=== PATIENT | female | born 1955 | race Caucasian/White ===

== ENCOUNTER → 2016-06-30 | Outpatient (CLI) | payer BC ==
[~2016-06-30] MED LIST: B-COCAP2 PO; CALC600T14 PO; EFF375 PO; FRRG PO; MAGN400T5 PO; METH-307 PO; NSNN50 NAE; ZOLP5TAB PO
== END | disposition home or self-care (01) ==
LOC: C.LABSPEC 17:13
PROVIDERS: ATTEND Podiatrist Primary Podiatric Medicine
DX: B35.1 Tinea unguium (principal)

== ENCOUNTER → 2016-11-08 | Outpatient (CLI) | payer BC | END | disposition home or self-care (01) | LOC: C.LAB1850 09:00 | PROVIDERS: ATTEND Obstetrics & Gynecology | DX: N63 Unspecified lump in breast (principal) ==

== ENCOUNTER → 2016-11-12 | Outpatient (CLI) | payer BC ==
[~2016-11-12] MED LIST changes: +GADAVIST IV PRN
--- NOTE | 2016-11-15 15:12 | MAMMOGRAPHY REPORT ---
BREAST MRI OF BOTH BREASTS : 11/12/2016 CLINICAL HISTORY: Screening breast MRI. Strong family history of breast cancer. COMPARISON: Comparison is made to exams dated: 01/14/2015 breast MRI, 10/10/2015 mammogram, 08/19/2014 ultrasound, 08/19/2014 mammogram, 11/13/2013 mammogram, and 10/25/2012 mammogram - [facility]. Technique: The patient was placed prone in a dedicated breast imaging coil. Precontrast axial T1-corina ghted, axial T2-weighted fat saturation, and axial T1-weighted fat saturation images were obtained. After the administration of 7 mL of Gadavist IV contrast, sequential T1-weighted fat saturation image s were obtained. Subtraction images were obtained of the dynamic contrast enhanced sequences, and 3- D reformations were performed. The Simbionix software was used for kinetic analysis. Findings: There is mild background parenchymal enhancement involving bilateral breasts. There are multiple sma ll foci of enhancement seen scattered throughout both breasts, which are considered benign given the multiplicity and bilaterality and felt to represent normal background parenchymal enhancement. There are no suspicious masses or areas of abnormal non-mass enhancement within either breast. There has been no significant interval change compared to the prior MRI. A faint 10 mm linear area of enhancem ent in the right 12:00 breast is stable compared to the 2015 exam and demonstrates no abnormal kineti cs and is therefore considered benign (series [id number] image [id number]). There is no evidence of axillary adenopathy. The chest wall structures are negative. Extramammary s oft tissues are unremarkable. IMPRESSION: ACR BI-RADS CATEGORY 2: BENIGN No MRI evidence of malignancy in either breast. Recommend screening bilateral breast MRI in one year . Note that the patient is also due for bilateral screening mammograms at this time (were due October 01). Joslyn Quintanilla M.D. 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
== END | disposition home or self-care (01) ==
LOC: C.MRI 08:07
PROVIDERS: ATTEND Obstetrics & Gynecology
DX: N63 Unspecified lump in breast (principal)

== ENCOUNTER → 2017-02-01 | Outpatient (CLI) | payer BC ==
[~2017-02-01] MED LIST changes: -GADAVIST IV PRN
== END | disposition home or self-care (01) ==
LOC: C.LAB1850 09:12
PROVIDERS: ATTEND Obstetrics & Gynecology
DX: R61 Generalized hyperhidrosis (principal)

== ENCOUNTER → 2017-03-10 | Outpatient (CLI) | payer BC ==
--- NOTE | 2017-03-11 07:53 | MAMMOGRAPHY REPORT ---
BILATERAL DIGITAL SCREENING MAMMOGRAM TOMOSYNTHESIS WITH CAD: 03/10/2017 TECHNIQUE: Breast tomosynthesis in addition to standard 2D mammography was performed. Current study was also evaluated with a Computer Aided Detection (CAD) system. COMPARISON: Comparison is made to exams dated: 11/12/2016 breast MRI, 10/10/2015 mammogram, 01/14/2015 breast MRI, 08/19/2014 ultrasound, 08/19/2014 mammogram, and 11/13/2013 mammogram - [facility]. BREAST COMPOSITION: The tissue of both breasts is heterogeneously dense, which may obscure small mas ses. FINDINGS: No suspicious masses, calcifications, or areas of architectural distortion are noted in ei ther breast. There has been no significant interval change compared to prior exams. Scattered bilater al benign-appearing calcifications are not significantly changed. IMPRESSION: ACR BI-RADS CATEGORY 2: BENIGN There is no mammographic evidence of malignancy. A 1 year screening mammogram is recommended. The pa tient will receive written notification of the results. Approximately 10% of breast cancers are not detected with mammography. A negative mammographic report should not delay biopsy if a clinically suggestive mass is present. Joslyn Quintanilla M.D. 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
== END | disposition home or self-care (01) ==
LOC: C.MAMM 15:09
PROVIDERS: ATTEND Obstetrics & Gynecology
DX: Z12.31 Encounter for screening mammogram for malignant neoplasm of breast (principal)

== ENCOUNTER → 2017-06-10 | Outpatient (CLI) | payer OTHER ==
--- NOTE | 2017-06-10 11:30 | DIAGNOSTIC IMAGING REPORT ---
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 Mild mucosal thickening of the sphenoid sinuses noted with suggested air-fluid level of the right sphenoid sinus. The remaining paranasal sinuses appear generally clear. Mastoid air cells also appear clear. No opaque foreign body or facial bone fracture identified. IMPRESSION: 1. Mild mucosal thickening of the sphenoid sinuses with small air-fluid level of the right sphenoid sinus suggests acute sinusitis. 2. Hypoplasia of the right frontal sinus. The above report was generated using voice recognition software. It may contain grammatical, syntax or spelling errors. Electronically signed by: Niles Way M.D. 06/10/2017 11:28 AM Dictated Date/Time: 06/10/2017 11:26 AM
== END | disposition home or self-care (01) ==
LOC: C.RAD1850 10:53
PROVIDERS: ATTEND Internal Medicine
DX: R09.81 Nasal congestion (principal); J34.89 Other specified disorders of nose and nasal sinuses

== ENCOUNTER → 2017-07-01 | Outpatient (CLI) | payer OTHER ==
--- NOTE | 2017-07-01 11:10 | DIAGNOSTIC IMAGING REPORT ---
CT OF THE SINUSES WITHOUT CONTRAST FUSION PROTOCOL CLINICAL HISTORY: Allergic rhinitis. Recurrent sinusitis despite antibiotic and prednisone therapy. COMPARISON STUDY: Head CT August 31, 2013 and sinus radiographs June 10, 2017. TECHNIQUE: Axial images of the sinuses were obtained without intravenous contrast according to the Fusion protocol. Coronal reformats were viewed. FINDINGS: Visualized portions of the intracranial contents are unremarkable on this unenhanced exam. The mastoid air cells are clear. There is no fluid within the middle ears. Ossicles are intact. Orbits are unremarkable. There is no mass or bony destruction within the sinuses or the nasal cavity. The cribriform plate is intact. There is mild mucosal thickening within the bilateral inferior frontal sinuses. The bilateral frontoethmoidal recesses are occluded by mucosal thickening. A small left sphenoid sinus air-fluid level is noted. The bilateral sphenoethmoidal recesses are occluded. There is moderate mucosal thickening of the ethmoid sinuses as well as mild thickening of the bilateral maxillary sinuses without air-fluid levels. The left ostiomeatal complex is occluded. The right is patent. There is no significant nasal septal deviation. IMPRESSION: 1. Small left sphenoid sinus air-fluid level which suggests acute sinusitis. Moderate mucosal thickening of the ethmoid sinuses with mild mucosal thickening of the bilateral maxillary and frontal sinuses. 2. Multiple occluded drainage pathways, as detailed above. No bony destruction. No mass identified. Electronically signed by: Marciano Mcneil M.D. 07/01/2017 11:08 AM Dictated Date/Time: 07/01/2017 11:02 AM
== END | disposition home or self-care (01) ==
LOC: C.CTS 10:14
PROVIDERS: ATTEND Physician Assistant
DX: J01.20 Acute ethmoidal sinusitis, unspecified (principal); J30.9 Allergic rhinitis, unspecified

== ENCOUNTER → 2017-08-02 | Outpatient (CLI) | payer OTHER ==
--- NOTE | 2017-08-02 16:04 | DIAGNOSTIC IMAGING REPORT ---
CHEST 2 VIEWS ROUTINE HISTORY: Short of breath. Cough. COMPARISON: Chest 04/17/2013. FINDINGS: The lungs are clear. Cardiac silhouette is normal in size. No pleural effusions. No pneumothorax. IMPRESSION: No acute process. Electronically signed by: Randy Jimenez M.D. 08/02/2017 4:03 PM Dictated Date/Time: 08/02/2017 4:01 PM
== END | disposition home or self-care (01) ==
LOC: C.RAD1850 15:46
PROVIDERS: ATTEND Internal Medicine
DX: R06.02 Shortness of breath (principal); R05 Cough

== ENCOUNTER → 2017-11-30 | Outpatient (CLI) | payer OTHER ==
[~2017-11-30] MED LIST changes: +CETI10TA84 PO; -EFF375 PO; -METH-307 PO; +VNTHFA/IN INH; -ZOLP5TAB PO
[2017-11-30 12:21] LABS: BASO % 0.1 %; BASO ABS # 0.01 K/uL (0-0.2); EOS % 0.2 %; EOS ABS # 0.03 K/uL (0-0.5); HEMATOCRIT 41.1 % (37-47); HEMOGLOBIN 13.6 g/dL (12.0-16.0); IG# 0.07 K/uL (0.00-0.02); LYMPH % 6.4 %; LYMPH ABS # 0.92 K/uL (1.2-3.4); MEAN CELL VOLUME 91.9 fL (80-100); MEAN CORPUSCULAR HEMOGLOBIN 30.4 pg (25-34); MEAN CORPUSCULAR HGB CONC 33.1 g/dl (32-36); MEAN PLATELET VOLUME 9.8 fL (7.4-10.4); MONO % 7.6 %; MONO ABS # 1.09 K/uL (0.11-0.59); NEUT % 85.2 %; NEUT ABS # 12.16 K/uL (1.4-6.5); PLATELET COUNT 375 K/uL (130-400); RED CELL DISTRIBUTION WIDTH CV 13.5 % (11.5-14.5); RED CELL DISTRIBUTION WIDTH SD 44.7 fL (36.4-46.3); WHITE BLOOD COUNT 14.28 K/uL (4.8-10.8)
[2017-11-30 12:42] LABS: PTT PATIENT 25.1 SECONDS (21.0-31.0)
[2017-11-30 13:37] LABS: POTASSIUM 4.3 mmol/L (3.5-5.1)
== END | disposition home or self-care (01) ==
LOC: C.CPL 11:13
DX: Z01.818 Encounter for other preprocedural examination (principal)

== ENCOUNTER → 2017-12-02 | Day surgery (SDC) | payer OTHER ==
[2017-11-03 11:48] VITALS: Ht 162.6 cm; Wt 75.0 kg
[~2017-12-02] VITALS: Ht 162.6 cm; Wt 75.0 kg
[~2017-12-02] MED LIST changes: +ATROPINE SULFATE 0.1 MG/ML 5ML SYR IV PRN; +CEFAZOLIN 2000MG IV PUSH 15 ML IV SCH; +DEXAMETHASONE SOD INJ 4 MG/ML VIAL ONE; +EpHEDrine SULFATE INJ 50 MG/ML AMP IV PRN; +EpINEphrine INJ 1MG/ML AMP 1 MG/ML AMP ONE; +FENTANYL CITRATE INJ 50 MCG/1 ML 2 ML VIAL ONE; +HYDROCODONE/ACETAMIN 5/325MG TAB PO PRN; +HYDROCORTISONE SOD SUCCINATE 100 MG/2 ML VIAL ONE; +LACTATED RINGER'S 1000ML 1,000 ML IV SCH; +LIDOCAINE 4% MPF SOAK 5 ML = 1 DOSE ONE; +LIDOCAINE HCL 2% 2 ML VIAL (20MG/ML) ONE; +LIDOCAINE/EPINEPHRINE 1% 20 ML VIAL ONE; +MIDAZOLAM HCL 1 MG/ML 2ML VIAL ONE; +ONDANSETRON INJ 2 MG/ML 2 ML VIAL IV PRN; +ONDANSETRON INJ 2 MG/ML 2 ML VIAL ONE; +OXYMETAZOLINE HCL 0.05% NA SPR 15 ML BTL PRN; +OXYMETAZOLINE HCL 0.05% NA SPR 15 ML BTL SCH; +PROPOFOL IV EMULSION 10 MG/ML 20 ML VIAL ONE; +ROCURONIUM BROMIDE 10 MG/ML 5 ML VIAL ONE
--- NOTE | 2017-12-02 11:17 | History & Physical Bridge - [place] ---
H&P Re-Evaluation Bridge Note: I have examined the patient, reviewed the History & Physical and in the interval since the performance of the History & Physical I have noted the following changes of clinical significance: No changes noted
--- NOTE | 2017-12-02 13:02 | [facility] Operative Report ---
Operative Report Operative Date Dec 02, 2017. Pre-Operative Diagnosis CHRONIC SINUSITIS AND BILATERAL INFERIOR TURBINATE HYPERTROPHY Post-Operative Diagnosis SAME PREOP Procedure(s) Performed Image Guided Bilateral Endoscopic Sinus Surgery And Inferior Turbinate Reduction Surgeon DR. Malinda HADDAD Medical Administrative Technician Surgeon(s) NONE Estimated Blood Loss 25 ML Findings 1. SMALL BILATERAL SHAYNE BULLOSA 2. POLYPOID MUCOSAL THICKENING BILATERAL FRONTOETHMOIDAL RECESSES 3. MILD MUCOSAL THICKENING OF ALL OF THE PARANASAL SINUSES 4. MODERATE BILATERAL INFERIOR TURBINATE HYPERTROPHY Specimens NONE Anesthesia Type General I attest to the content of the Intraoperative Record and any orders documented therein. Any exceptions are noted below.
--- NOTE | 2017-12-02 13:04 | Discharge Instructions ---
Discharge Instructions Date of Service Dec 02, 2017. Admission Reason for Admission: Hypertrophy Both Inferior Turbinate Reduction, Rec Discharge Discharge Diagnosis / Problem: SAME Discharge Goals Goal(s): Therapeutic intervention Activity Recommendations Activity Limitations: as noted below LIGHT ACTIVITY AND NO NOSE BLOWING FOR 2 WEEKS; NO DRIVING WHILE ON NORCO . Current Hospital Diet Patient's current hospital diet: Discharge Diet Recommended Diet: Regular Diet Procedures Procedures Performed: Image Guided Bilateral Endoscopic Sinus Surgery And Inferior Turbinate Reduction Pending Studies Studies pending at discharge: no Medical Emergencies . Who to Call and When: Medical Emergencies: If at any time you feel your situation is an emergency, please call 911 immediately. . Non-Emergent Contact Non-Emergency issues call your: Surgeon . . "Provider Documentation" section prepared by Oneil Jimenez. .
[2017-12-02] MEDS: FENTANYL CITRATE INJ 50 MCG/1 ML 2 ML VIAL IV PRN ×4 (13:25→13:45)
--- NOTE | 2017-12-02 13:58 | Anesthesia Progress Nt - [facility] ---
Anesthesia Post Op Note Date & Time Dec 02, 2017 at 13:58 Vital Signs Pain Intensity: 4 Vital Signs Past 12 Hours Date Time Temp Pulse Resp B/P (MAP) Pulse Ox O2 Delivery O2 Flow Rate FiO2 12/02/17 13:53 36.7 78 16 130/85 94 Room Air 12/02/17 13:52 75 23 93 12/02/17 13:52 76 23 12/02/17 13:51 130/85 12/02/17 13:47 76 16 94 12/02/17 13:47 76 16 12/02/17 13:46 123/82 12/02/17 13:42 76 20 98 12/02/17 13:42 76 20 12/02/17 13:41 130/82 12/02/17 13:37 77 22 12/02/17 13:37 78 22 98 12/02/17 13:36 137/80 12/02/17 13:32 72 13 12/02/17 13:32 72 13 100 12/02/17 13:31 137/83 12/02/17 13:27 77 18 12/02/17 13:27 77 18 100 12/02/17 13:26 137/88 12/02/17 13:22 81 18 100 12/02/17 13:22 82 18 12/02/17 13:21 138/85 12/02/17 13:17 80 16 12/02/17 13:17 80 16 100 12/02/17 13:16 134/83 12/02/17 13:12 84 16 12/02/17 13:12 83 16 100 12/02/17 13:11 134/82 12/02/17 13:09 132/76 12/02/17 13:07 36.8 90 12 132/90 99 Humidified Oxygen 6 Mask 12/02/17 10:42 36.4 71 16 128/85 (99) 99 Room Air Notes Mental Status: alert / awake / arousable, participated in evaluation Pt Amnestic to Procedure: Yes Nausea / Vomiting: adequately controlled Pain: adequately controlled Airway Patency, RR, SpO2: stable & adequate BP & HR: stable & adequate Hydration State: stable & adequate Anesthetic Complications: no major complications apparent
[2017-12-02 14:19] VITALS: TEMP 36.7
--- NOTE | 2017-12-02 14:23 | OPERATIVE REPORT ---
DATE OF OPERATION: 12/02/2017 PREOPERATIVE DIAGNOSES: 1. Chronic rhinosinusitis. 2. Bilateral inferior turbinate hypertrophy. 3. Bilateral elfego bullosa. PREOPERATIVE DIAGNOSES: 1. Chronic rhinosinusitis. 2. Bilateral inferior turbinate hypertrophy. 3. Bilateral elfego bullosa. PROCEDURES: [employer] fusion image-guided bilateral endoscopic sinus surgery consisting of: 1. Bilateral endoscopic elfego bullosa resection. 2. Bilateral maxillary antrostomies. 3. Bilateral complete ethmoidectomies. 4. Bilateral balloon sinuplasty assisted frontal sinusotomies. 5. Bilateral sphenoidotomies. 6. Bilateral inferior turbinate outfracture and turbinoplasty. SURGEON: Oneil Jimenez MD ANESTHESIA: General endotracheal. ESTIMATED BLOOD LOSS: 25 mL. FINDINGS: 1. Severe polypoid mucosal thickening involving the bilateral frontal ethmoidal recesses. 2. Small bilateral elfego bullosa. 3. Moderate bilateral inferior turbinate hypertrophy. 4. Mild mucosal thickening involving all the other paranasal sinuses bilaterally. SPECIMENS: None. COMPLICATIONS: None. INDICATIONS FOR THE PROCEDURE: The patient is a 61-year-old female with the above-mentioned history, which has been refractory to maximum medical therapy. She presents for the above-mentioned procedures on an outpatient elective basis. DESCRIPTION OF PROCEDURE: After informed consent had been obtained from the patient, the patient was wheeled to the operating room and placed on the operating room table in the supine position. Monitors were placed and after induction of general endotracheal anesthesia, the patient prepped in the usual fashion for image-guided endoscopic sinus surgery. Lidocaine and epinephrine pledgets were placed in the bilateral nasal cavities. The [employer] fusion headset was placed on the forehead and was registered, calibrated, and verified and used throughout the case, but especially in the frontal and sphenoid sinus portions. The left-sided pledgets were removed. A freer elevator was used to medialize the left middle turbinate. The left middle turbinate and lateral nasal wall were injected with 1% lidocaine with 1:100,000 epinephrine. A lidocaine and epinephrine pledget was then placed into the left middle meatus. The right side was then addressed in a similar fashion. The left-sided pledget was removed. A sickle knife was used to incise the left middle turbinate longitudinally and the lateral half of the middle turbinate was removed using straight Gilles-Cut forceps and powered instrumentation in order to perform an endoscopic elfego bullosa resection. A freer elevator, straight Gilles-Cut forceps, and backbiting forceps along with powered instrumentation was then used to perform an uncinectomy. The natural ostia of the maxillary sinus was identified and this was enlarged anteriorly, inferiorly, and posteriorly using backbiting forceps and powered instrumentation. A complete ethmoidectomy was then performed using powered instrumentation. Using a curved frontal sinus suction, the left frontal sinus was cannulated. The suction was removed and a #6 frontal sinus balloon was inserted and inflated to 12 atmospheres of pressure in 3 different locations to dilate the left frontal recess. Polypoid tissue was removed using powered instrumentation. A transnasal approach of the sphenoid sinus was then undertaken. The natural ostia of the sphenoid sinus was identified and this was enlarged medially and inferiorly using powered instrumentation. Of note, the intraoperative findings were of severe polypoid mucosal thickening involving the agger nasi cells and polypoid mucosal thickening involving the left frontal ethmoidal recess. There was also a small elfego bullosa. There was also mild mucosal thickening involving all the paranasal sinuses on the left hand side. The right side was then addressed in a similar fashion with similar intraoperative findings. A Alva elevator was then used to infracture and subsequently outfracture the inferior turbinates bilaterally. These were injected with 1% lidocaine with 1:100,000 epinephrine. A 2.0 mm turbinate blade using powered instrumentation was then used to perform bilateral inferior turbinoplasties in a submucosal fashion. The sinonasal cavities were suctioned. Merogel was then placed into the bilateral ethmoid sinuses/middle meati. An orogastric tube was placed and the stomach was suctioned free of air and stomach contents. This marked the end of the case. The patient tolerated the procedure well and there were no apparent complications. The patient was extubated and transferred to recovery room in stable condition. I attest to the content of the Intraoperative Record and any orders documented therein. Any exception s are noted below.
[2017-12-02 14:47] VITALS: BP 127/84; PULSE 73; O2SAT 96
== END | disposition home or self-care (01) ==
LOC: X.SURG 09:19
DX: J32.9 Chronic sinusitis, unspecified (principal); J34.89 Other specified disorders of nose and nasal sinuses; J34.3 Hypertrophy of nasal turbinates; J45.909 Unspecified asthma, uncomplicated; E53.8 Deficiency of other specified B group vitamins; E55.9 Vitamin D deficiency, unspecified; K21.9 Gastro-esophageal reflux disease without esophagitis; E03.9 Hypothyroidism, unspecified